=== PATIENT | female | born 1965 | race Caucasian/White ===

== ENCOUNTER 2018-05-02 19:09 | Emergency (ER) | payer SELFPAY ==
[2018-05-02 20:46] LABS: Abs Immature Grans 0.02 k/cumm (0.0-0.09); Absolute Basophil Count 0.06 k/cumm (0.0-0.2); Absolute Eosinophil Count 0.19 k/cumm (0.0-0.7); Absolute Lymphocyte Count 2.14 k/cumm (1.2-3.4); Absolute Monocyte Count 0.64 k/cumm (0.11-0.7); Absolute Neutrophil Count 5.99 k/cumm (1.2-6.7); Basophils % 0.7; Eosinophils % 2.1; HCT 42.4 % (36.0-46.0); HGB 14.8 g/dL (12.0-15.5); Immature Grans % 0.2; Lymphocytes % 23.7; Mean Corp. HGB Concentration 34.9 g/dL (32.0-36.0); Mean Corpuscular Hemoglobin 32.7 pg (27.0-33.0); Mean Corpuscular Volume 93.6 fL (80-95); Mean Platelet Volume 10.5 fL (8.0-11.0); Monocytes % 7.1; Neutrophils % 66.2; Platelet Count 240 x1000/uL (130-400); RBC 4.53 m/cumm (4.00-5.20); RBC Distribution Width 13.9 % (11.7-14.6); White Blood Cell Count 9.04 k/cumm (4.4-10.8)
--- NOTE | 2018-05-02 20:53 | W.ED.GENAD ---
Discharge Plan Disposition Patient Disposition: HOME Condition: Good Discharge Details Chief Complaint: BodyFldExp Clinical Impression: Needlestick injury accident Primary Care Provider: Katiana Bella V ED Provider: German Lamb Home Meds and New Rx's Prescriptions: Continue losartan-hydrochlorothiazide 1 EACH tablet 1 tab-cap PO DAILY RF: 0 methotrexate sodium 2.5 MG tablet 2.5 mg PO DIRECTED RF: 0 nicotine (polacrilex) [Nicorette] 4 MG gum 4 mg PO Q2H PRN RF: 0 paroxetine HCl 30 MG tablet 30 mg PO DAILY RF: 0 folic acid 1 MG tablet 1 mg PO DAILY RF: 0 clobetasol-emollient 15 GM cream 15 gm Topical BID RF: 0 rosuvastatin [Crestor] 10 MG tablet 10 mg PO DAILY RF: 0 albuterol sulfate [ProAir RespiClick] 90 MCG aerosol powdr breath activated 90 mcg Inhalation Q4H PRN RF: 0 metformin [Glucophage] 1,000 MG tablet 750 mg PO BID RF: 0 nabumetone 500 mg Tablet 500 mg PO BID RF: 0 Discharge Instructions Instructions: Puncture Wound (ED), Postexposure Prophylaxis (ED) Additional Instructions: Follow-up with occupational medicine as needed for any reassessment. Watch for any signs of infection on your puncture wound and also follow-up as needed for reevaluation Referrals: Occupational Medicine [Outside] (As needed for reassessment) Discharge Data Discharge Date/Time-TO BE ENTERED AT DEPARTURE: 05/02/18 21:02 Medical Decision Making Patient presenting to the emergency department chief complaint of needlestick while at work. 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 Patient was suspected of possible drug use. Clothing was thoroughly searched and no needle was found so patient is unsure what she was punctured with and felt that may have been a sliver. More piece of plastic but again nothing injectable was found within patient's clothing. Patient has no known hepatitis C or HIV positive testing but patient is scheduled to be tested if the regular blood draw within the next week. Patient denies any other complaints and states that she thoroughly irrigated and washed the wound out immediately after it occurred. Baseline blood work was drawn for hepatitis panel, hiv, CBC and CMP. Patient was offered postexposure prophylaxis but denied medication at this time. Patient was encouraged to return for any symptoms of infectious disease or follow-up with occupational medicine as needed. Patient states understanding of risks versus benefit of post exposure prophylaxis. After discussion of diagnosis and plan of care patient has no further needs, questions, or concerns and states clear understanding to return to the emergency department for any worsening symptoms. HPI General Mode of arrival: ambulatory. Date/Time Provider Initiated Documentation: 05/02/18 19:21. Information obtained by: patient. History of Present Illness 52 year old F presents to the emergency department with the chief complaint of possible needlestick, described as mild, Quality is described as sharp, and is localized to the left and upper extremity. Patient notes no other symptoms.. Related Data Home Medications Medication Instructions Recorded Confirmed metformin [Glucophage] 750 mg PO BID 04/08/17 05/02/18 albuterol sulfate [ProAir 90 mcg INHALATION Q4H PRN 01/27/18 05/02/18 RespiClick] clobetasol-emollient 15 gm TOPICAL BID 01/27/18 05/02/18 folic acid 1 mg PO DAILY tab-cap 01/27/18 05/02/18 losartan-hydrochlorothiazide 1 tab-cap PO DAILY tab-cap 01/27/18 05/02/18 methotrexate sodium 2.5 mg PO DIRECTED tab-cap 01/27/18 05/02/18 nicotine (polacrilex) [Nicorette] 4 mg PO Q2H PRN piece of gum 01/27/18 05/02/18 paroxetine HCl 30 mg PO DAILY tab-cap 01/27/18 05/02/18 rosuvastatin [Crestor] 10 mg PO DAILY tab-cap 01/27/18 05/02/18 nabumetone 500 mg PO BID 05/02/18 05/02/18 Allergies Allergy/AdvReac Type Severity Reaction Status Date / Time bupropion HCl Allergy Intermediate Unverified 05/02/18 19:31 [From Wellbutrin] lisinopril Allergy Intermediate Unverified 05/02/18 19:31 General Stated Complaint: BodyFldExp MATTIE: 4 Review of Systems Constitutional Denies body ache(s), Denies chills and Denies fever(s) Cardiovascular Denies chest pain and Denies dyspnea Respiratory Denies dyspnea Gastrointestinal Denies abdominal pain, Denies nausea and Denies vomiting Integumentary/Breasts Reports as per HPI and Denies rash Neurologic Denies sensory deficit [facility] Medical History Psoriatic arthritis (Acute) Type 2 diabetes mellitus (Acute) Hypertension (Chronic) Osteoarthritis (Chronic) Social History Smoking/Tobacco Use Status: Current every day Exam Const General: cooperative, no acute distress and not ill appearing Orientation: alert, awake and oriented x3 HENMT Mouth: moist mucous membranes Resp Effort & Inspection: normal respiratory effort, able to speak in complete sentences and no respiratory distress Cardio Rate: regular rate Rhythm: regular rhythm Skin General skin exam: no rashes or lesions noted Wounds: wounds noted (Small superficial puncture wound to distal bullard aspect of left middle finger) Neuro General: alert, awake, oriented x3, moves all extremities and no focal motor deficits Sensory Exam: no sensory deficits noted Course Respiratory Effort Non-Labored 05/02/18 19:25 Lab/Test Results Lab/Test Results: Laboratory Tests Range/Units 05/02/18 20:21 WBC (4.4-10.8) k/cumm 9.04 RBC (4.00-5.20) m/cumm 4.53 Hgb (12.0-15.5) g/dL 14.8 Hct (36.0-46.0) % 42.4 MCV (80-95) fL 93.6 MCH (27.0-33.0) pg 32.7 MCHC (32.0-36.0) g/dL 34.9 RDW (11.7-14.6) % 13.9 Plt Count (130-400) x1000/uL 240 MPV (8.0-11.0) fL 10.5 Immature Gran % 0.2 Neutrophils % 66.2 Lymphocytes % 23.7 Monocytes % 7.1 Eosinophils % 2.1 Basophils % 0.7 Absolute Neutrophils (1.2-6.7) k/cumm 5.99 Absolute Lymphocytes (1.2-3.4) k/cumm 2.14 Absolute Monocytes (0.11-0.7) k/cumm 0.64 Absolute Eosinophils (0.0-0.7) k/cumm 0.19 Absolute Basophils (0.0-0.2) k/cumm 0.06
[2018-05-02 20:57] LABS: ALT 34 U/L (12-78); AST 18 U/L (15-37); Albumin 4.1 g/dL (3.4-5.0); Alkaline Phosphatase 108 U/L (46-116); Anion Gap 10.9 mmol/L (3-11); BUN 12 mg/dL (7-18); Bilirubin, Total 0.6 mg/dL (0.2-1.0); CO2 28.1 mmol/L (21.0-32.0); CREATININE 0.62 mg/dL (0.55-1.02); Calcium 9.2 mg/dL (8.5-10.1); Chloride 101 mmol/L (98-107); Glucose 101 mg/dL (70-100); Potassium 3.4 mmol/L (3.5-5.1); Sodium 140 mmol/L (136-145); Total Protein 7.5 g/dL (6.4-8.2)
--- NOTE | 2018-05-02 21:02 | ED.GENADUL_ITS ---
Discharge Plan Disposition Patient Disposition: HOME Condition: Good Discharge Details Chief Complaint: BodyFldExp Clinical Impression: Needlestick injury accident Primary Care Provider: Katiana Bella V ED Provider: German Lamb Home Meds and New Rx's Prescriptions: Continue losartan-hydrochlorothiazide 1 EACH tablet 1 tab-cap PO DAILY RF: 0 methotrexate sodium 2.5 MG tablet 2.5 mg PO DIRECTED RF: 0 nicotine (polacrilex) [Nicorette] 4 MG gum 4 mg PO Q2H PRN RF: 0 paroxetine HCl 30 MG tablet 30 mg PO DAILY RF: 0 folic acid 1 MG tablet 1 mg PO DAILY RF: 0 clobetasol-emollient 15 GM cream 15 gm Topical BID RF: 0 rosuvastatin [Crestor] 10 MG tablet 10 mg PO DAILY RF: 0 albuterol sulfate [ProAir RespiClick] 90 MCG aerosol powdr breath activated 90 mcg Inhalation Q4H PRN RF: 0 metformin [Glucophage] 1,000 MG tablet 750 mg PO BID RF: 0 nabumetone 500 mg Tablet 500 mg PO BID RF: 0 Discharge Instructions Instructions: Puncture Wound (ED), Postexposure Prophylaxis (ED) Additional Instructions: Follow-up with occupational medicine as needed for any reassessment. Watch for any signs of infection on your puncture wound and also follow-up as needed for reevaluation Referrals: Occupational Medicine [Outside] (As needed for reassessment) Discharge Data Discharge Date/Time-TO BE ENTERED AT DEPARTURE: 05/02/18 21:02 Medical Decision Making Patient presenting to the emergency department chief complaint of needlestick while at work. 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 Patient was suspected of possible drug use. Clothing was thoroughly searched and no needle was found so patient is unsure what she was punctured with and felt that may have been a sliver. More piece of plastic but again nothing injectable was found within patient's clothing. Patient has no known hepatitis C or HIV positive testing but patient is scheduled to be tested if the regular blood draw within the next week. Patient denies any other complaints and states that she thoroughly irrigated and washed the wound out immediately after it occurred. Baseline blood work was drawn for hepatitis panel, hiv, CBC and CMP. Patient was offered postexposure prophylaxis but denied medication at this time. Patient was encouraged to return for any symptoms of infectious disease or follow-up with occupational medicine as needed. Patient states understanding of risks versus benefit of post exposure prophylaxis. After discussion of diagnosis and plan of care patient has no further needs, questions, or concerns and states clear understanding to return to the emergency department for any worsening symptoms. HPI General Mode of arrival: ambulatory . Date/Time Provider Initiated Documentation: 05/02/18 19:21 . Information obtained by: patient . History of Present Illness 52 year old F presents to the emergency department with the chief complaint of possible needlestick, described as mild, Quality is described as sharp, and is localized to the left and upper extremity. Patient notes no other symptoms.. Related Data Home Medications Medication Instructions Recorded Confirmed metformin [Glucophage] 750 mg PO BID 04/08/17 05/02/18 albuterol sulfate [ProAir 90 mcg INHALATION Q4H PRN 01/27/18 05/02/18 RespiClick] clobetasol-emollient 15 gm TOPICAL BID 01/27/18 05/02/18 folic acid 1 mg PO DAILY tab-cap 01/27/18 05/02/18 losartan-hydrochlorothiazide 1 tab-cap PO DAILY tab-cap 01/27/18 05/02/18 methotrexate sodium 2.5 mg PO DIRECTED tab-cap 01/27/18 05/02/18 nicotine (polacrilex) [Nicorette] 4 mg PO Q2H PRN piece of gum 01/27/18 paroxetine HCl 30 mg PO DAILY tab-cap 01/27/18 05/02/18 rosuvastatin [Crestor] 10 mg PO DAILY tab-cap 01/27/18 05/02/18 nabumetone 500 mg PO BID 05/02/18 05/02/18 Allergies Allergy/AdvReac Type Severity Reaction Status Date / Time bupropion HCl Allergy Intermediate Unverified 05/02/18 19:31 [From Wellbutrin] lisinopril Allergy Intermediate Unverified 05/02/18 19:31 General Stated Complaint: BodyFldExp MATTIE: 4 Review of Systems Constitutional Denies body ache(s), Denies chills and Denies fever(s) Cardiovascular Denies chest pain and Denies dyspnea Respiratory Denies dyspnea Gastrointestinal Denies abdominal pain, Denies nausea and Denies vomiting Integumentary/Breasts Reports as per HPI and Denies rash Neurologic Denies sensory deficit [facility] Medical History Psoriatic arthritis (Acute) Type 2 diabetes mellitus (Acute) Hypertension (Chronic) Osteoarthritis (Chronic) Social History Smoking/Tobacco Use Status: Current every day Exam Const General: cooperative, no acute distress and not ill appearing Orientation: alert, awake and oriented x3 HENMT Mouth: moist mucous membranes Resp Effort & Inspection: normal respiratory effort, able to speak in complete sentences and no respiratory distress Cardio Rate: regular rate Rhythm: regular rhythm Skin General skin exam: no rashes or lesions noted Wounds: wounds noted (Small superficial puncture wound to distal bullard aspect of left middle finger) Neuro General: alert, awake, oriented x3, moves all extremities and no focal motor deficits Sensory Exam: no sensory deficits noted Course Respiratory Effort Non-Labored 05/02/18 19:25 Lab/Test Results Lab/Test Results: Laboratory Tests Range/Units 05/02/18 20:21 WBC (4.4-10.8) k/cumm 9.04 RBC (4.00-5.20) m/cumm 4.53 Hgb (12.0-15.5) g/dL 14.8 Hct (36.0-46.0) % 42.4 MCV (80-95) fL 93.6 MCH (27.0-33.0) pg 32.7 MCHC (32.0-36.0) g/dL 34.9 RDW (11.7-14.6) % 13.9 Plt Count (130-400) x1000/uL 240 MPV (8.0-11.0) fL 10.5 Immature Gran % 0.2 Neutrophils % 66.2 Lymphocytes % 23.7 Monocytes % 7.1 Eosinophils % 2.1 Basophils % 0.7 Absolute Neutrophils (1.2-6.7) k/cumm 5.99 Absolute Lymphocytes (1.2-3.4) k/cumm 2.14 Absolute Monocytes (0.11-0.7) k/cumm 0.64 Absolute Eosinophils (0.0-0.7) k/cumm 0.19 Absolute Basophils (0.0-0.2) k/cumm 0.06
[2018-05-02 21:39] LABS: HIV 1/2 Ab Rapid Negative (Negative)
[2018-05-04 11:55] LABS: Hepatitis A Antibody IgM Negative (NEGAT); Hepatitis B Core Antibody Negative (NEGAT); Hepatitis B surface Ag Negative (NEGAT); Hepatitis C Ab w Rflx HCV PCR Negative (NEGAT)
== END 2018-05-02 21:02 | disposition home or self-care (01) ==
PROVIDERS: Emergency Provider Nurse Practitioner Family; PCP Family Medicine
DX: S61.233A Puncture wound without foreign body of left middle finger without damage to nail, initial encounter (principal); W45.8XXA Other foreign body or object entering through skin, initial encounter
CPT/HCPCS: 36415; 80053; 86704; 86709; 86803; 87340; 99283; 85025; 99282

== ENCOUNTER 2018-09-02 15:04 | Outpatient (REF) | payer BC, SELFPAY ==
[2018-09-02 19:50] LABS: Anion Gap 10.4 mmol/L (3-11); BUN 14 mg/dL (7-18); CO2 26.6 mmol/L (21.0-32.0); CREATININE 0.72 mg/dL (0.55-1.02); Calcium 9.3 mg/dL (8.5-10.1); Chloride 105 mmol/L (98-107); Cholesterol 224 mg/dL (50-200); Glucose 108 mg/dL (70-100); HDL Cholesterol 65 mg/dL (40-60); LDL CHOLESTEROL 140 mg/dL (<100); Potassium 4.2 mmol/L (3.5-5.1); Sodium 142 mmol/L (136-145); Triglyceride 76 mg/dL (30-150)
== END 2018-09-02 15:24 ==
LOC: NCHCN 15:04
PROVIDERS: PCP Family Medicine; Visit Provider Family Medicine
DX: Z86.79 Personal history of other diseases of the circulatory system (principal)
CPT/HCPCS: 80048; 80061; 83721

== ENCOUNTER 2019-08-04 11:58 | Outpatient (REF) | payer BC, SELFPAY ==
[2019-08-04 19:47] LABS: Hemoglobin A1C 5.8 % (3.8-5.6)
[2019-08-04 19:49] LABS: ALT 37 U/L (14-59); AST 24 U/L (15-37); Albumin 4.2 g/dL (3.4-5.0); Alkaline Phosphatase 113 U/L (46-116); Anion Gap 11.7 mmol/L (3-11); BUN 19 mg/dL (7-18); Bilirubin, Total 0.4 mg/dL (0.2-1.0); C-Reactive Protein 1.26 mg/dL (0.0-0.3); CO2 26.3 mmol/L (21.0-32.0); CREATININE 0.65 mg/dL (0.55-1.02); Calcium 9.3 mg/dL (8.5-10.1); Chloride 104 mmol/L (98-107); Glucose 116 mg/dL (74-106); Potassium 4.6 mmol/L (3.5-5.1); Sodium 142 mmol/L (136-145); Total Protein 7.4 g/dL (6.4-8.2)
[2019-08-04 20:39] LABS: ESR 14 mm/hr (0-30)
== END 2019-08-04 12:18 ==
LOC: NCHCN 11:58
PROVIDERS: PCP Family Medicine; Visit Provider Family Medicine
DX: E11.9 Type 2 diabetes mellitus without complications (principal); I10 Essential (primary) hypertension; L40.50 Arthropathic psoriasis, unspecified
CPT/HCPCS: 80053; 85652; 83036; 86140

== ENCOUNTER 2020-03-14 12:34 | Outpatient (REF) | payer BC, SELFPAY ==
[2020-03-14 19:34] LABS: HCT 46.9 % (36.0-46.0); HGB 15.7 g/dL (11.2-15.7); MCH 30.5 pg (27.0-33.0); MCHC 33.5 % (32.0-36.0); MCV 91.2 fL (80-95); MPV 11.2 fL (8.0-11.0); Platelet Count 261 10^3/uL (130-400); RBC 5.14 10^6/uL (3.93-5.22); RDW 11.9 % (11.7-14.6); RDW-SD 40.2 fL; WBC 7.86 10^3/uL (4.4-10.8)
[2020-03-14 19:51] LABS: ALT 38 U/L (14-59); AST 22 U/L (15-37); Albumin 4.1 g/dL (3.4-5.0); Alkaline Phosphatase 123 U/L (46-116); Anion Gap 5.7 mmol/L (3-11); BUN 13 mg/dL (7-18); Bilirubin, Total 0.4 mg/dL (0.2-1.0); CO2 31.3 mmol/L (21.0-32.0); CREATININE 0.71 mg/dL (0.55-1.02); Calcium 9.1 mg/dL (8.5-10.1); Calculated LDL 150 mg/dL (<100); Chloride 103 mmol/L (98-107); Cholesterol 235 mg/dL (<200); Glucose 112 mg/dL (74-106); HDL Cholesterol 66 mg/dL (40-60); Potassium 4.2 mmol/L (3.5-5.1); Sodium 140 mmol/L (136-145); Total Protein 7.3 g/dL (6.4-8.2); Triglyceride 99 mg/dL (<150)
[2020-03-14 20:34] LABS: ESR 16 mm/hr (0-30)
== END 2020-03-14 12:54 ==
LOC: NCHCN 12:34
PROVIDERS: PCP Family Medicine; Visit Provider Family Medicine
DX: L40.50 Arthropathic psoriasis, unspecified (principal); I10 Essential (primary) hypertension; M25.50 Pain in unspecified joint
CPT/HCPCS: 80053; 80061; 85027; 85652

== ENCOUNTER 2021-05-15 15:56 | Outpatient (REF) | payer BC, SELFPAY ==
[2021-05-15 19:43] LABS: ESR 21 mm/hr (0-30)
[2021-05-15 19:44] LABS: HGB 15.2 g/dL (11.2-15.7); MCHC 33.8 % (32.0-36.0); MCV 91.6 fL (80-95); MPV 10.7 fL (8.0-11.0); Platelet Count 239 10^3/uL (130-400); RBC 4.91 10^6/uL (3.93-5.22); RDW 12.2 % (11.7-14.6); RDW-SD 41.2 fL; WBC 8.15 10^3/uL (4.4-10.8)
[2021-05-15 19:55] LABS: ALT 37 U/L (14-59); AST 19 U/L (15-37); Albumin 3.9 g/dL (3.4-5.0); Alkaline Phosphatase 119 U/L (46-116); Anion Gap 9.1 mmol/L (3-11); BUN 10 mg/dL (7-18); Bilirubin, Total 0.4 mg/dL (0.2-1.0); C-Reactive Protein 1.42 mg/dL (0.0-0.3); CO2 29.9 mmol/L (21.0-32.0); CREATININE 0.7 mg/dL (0.55-1.02); Calcium 9.2 mg/dL (8.5-10.1); Chloride 103 mmol/L (98-107); Glucose 158 mg/dL (74-106); Potassium 4.2 mmol/L (3.5-5.1); Sodium 142 mmol/L (136-145); Total Protein 7.1 g/dL (6.4-8.2)
[2021-05-15 20:00] LABS: Hemoglobin A1C 7.1 % (<5.7)
== END 2021-05-15 15:57 | disposition home or self-care (01) ==
LOC: NCHCN 15:56
PROVIDERS: PCP Family Medicine; Visit Provider Family Medicine
DX: E11.9 Type 2 diabetes mellitus without complications (principal); E78.5 Hyperlipidemia, unspecified; Z00.00 Encounter for general adult medical examination without abnormal findings; L40.50 Arthropathic psoriasis, unspecified
CPT/HCPCS: 80053; 85027; 85652; 83036; 86140